=== PATIENT | female | born 1945 | race African-American/Black ===

== ENCOUNTER 2016-10-28 01:59 | Emergency (ER) | payer MEDICARE, MEDICAID ==
[~2016-10-28] VITALS: Ht 165.1 cm; Wt 106.6 kg
[~2016-10-28 01:59] MED LIST: ACE650RS PO; ALBU0.084 IN; ALBUAER3 IN; ALPR0.25 PO; ASPI-264 PO; BUDE160A3 INH; COLC1TAB3 PO; DONE5TAB28 PO; FUR40T PO; HYD25T PO; HYDR-1421 PO; POTA8TAB2 PO; ROPI1TAB2 PO; THEO400T PO; [UNRECOGNIZED DRUG - CODE] PO
[2016-10-28 02:09] VITALS: BP 165/89
== END 2016-10-28 05:00 | disposition home or self-care (01) ==
LOC: EDBD 01:59 → ER 02:09
DX: S13.9XXA Sprain of joints and ligaments of unspecified parts of neck, initial encounter (principal); R51 Headache; I50.9 Heart failure, unspecified; J44.9 Chronic obstructive pulmonary disease, unspecified; M10.9 Gout, unspecified; Z79.899 Other long term (current) drug therapy; Z79.82 Long term (current) use of aspirin; Z88.1 Allergy status to other antibiotic agents; Z88.0 Allergy status to penicillin; F17.210 Nicotine dependence, cigarettes, uncomplicated; X58.XXXA Exposure to other specified factors, initial encounter; Y99.8 Other external cause status; Y93.89 Activity, other specified; Y92.89 Other specified places as the place of occurrence of the external cause
CPT/HCPCS: 70450; 72125; 93005

== ENCOUNTER 2017-02-02 20:26 | Emergency (ER) | payer MEDICARE, MEDICAID ==
[~2017-02-02] VITALS: Ht 165.1 cm; Wt 102.5 kg
[~2017-02-02 20:26] MED LIST changes: +ALPR-140 PO; -ALPR0.25 PO; +DICL1GEL26 TOP; +GABA-497 PO; -HYDR-1421 PO; +HYDR-2652 PO; +HYDR-531 PO; +PRE1T PO; -THEO400T PO; +THEOPHYLLINE E400 MG PO
[2017-02-02 21:30] VITALS: BP 136/81
[2017-02-02 21:38] LABS: Albumin 3.5 g/dL (3.4-5.0); Alkaline Phosphatase 78 U/L (45-117); Anion Gap 7 (5-15); Aspartate Aminotransferase 26 U/L (15-37); BUN/Creatinine Ratio 15.4; Bilirubin, Total 0.3 mg/dL (0.2-1.0); Blood Urea Nitrogen 18 mg/dL (7-18); Carbon Dioxide 31 mmol/L (21-32); Chloride 101 mmol/L (98-107); GFR African American 58 mL/min; GFR Non-African American 48 mL/min; Glucose 137 mg/dL (74-106); Potassium 3.3 mmol/L (3.5-5.1); Sodium 139 mmol/L (136-145); Total Protein 7.5 g/dL (6.4-8.2)
[2017-02-02 21:55] LABS: Basophils # (auto) 0.1 uL; Basophils % (auto) 0.9 % (0.0-2.0); CONDITION Y; DEFINITIVE SEE PRINTOUT; Eosinophils # (auto) 0.2 uL; Eosinophils % (auto) 1.6 % (0.0-7.0); Hematocrit 42.8 % (36.0-46.0); Lymphocytes # (auto) 5.5 uL; Lymphocytes % (auto) 35.2 % (10.0-50.0); Mean Corpuscular Hemoglobin 26.7 pg (28.0-32.0); Mean Corpuscular Hgb Conc. 32.6 g/dL (32.0-36.0); Mean Platelet Volume 7.7 fL (7.4-10.4); Monocytes # (auto) 1.5 uL; Monocytes % (auto) 9.9 % (0.0-12.0); Neutrophils # (auto) 8.1 uL; Neutrophils % (auto) 52.4 % (37.0-80.0); Platelet Count (auto) 355 10^3/uL (140-450); White Blood Cell 15.5 10^3/uL (4.4-10.8)
[2017-02-02 21:58] LABS: Red Cell Distribution Width 20.7 % (11.6-16.0)
[2017-02-02 21:59] LABS: B-Type Natriuretic Peptide 41.59 pg/mL (0-100)
[2017-02-02 22:11] LABS: Anisocytosis Slight; Hypochromia Slight; Platelet Estimate Adequate
[2017-02-02 22:29] LABS: Temperature: 24.3 C (20.0-25.0)
== END 2017-02-03 00:34 | disposition home or self-care (01) ==
LOC: ER 20:27
DX: J44.1 Chronic obstructive pulmonary disease with (acute) exacerbation (principal); E87.6 Hypokalemia; I50.9 Heart failure, unspecified; M10.9 Gout, unspecified; I11.0 Hypertensive heart disease with heart failure; F17.210 Nicotine dependence, cigarettes, uncomplicated
CPT/HCPCS: 36415; 71010; 80053; 83880; 84484; 85025; 93005

== ENCOUNTER → 2020-03-29 | Emergency (ER) | payer MEDICARE, MEDICAID ==
[~2020-03-29] VITALS: Ht 152.4 cm; Wt 113.4 kg
[~2020-03-29] MED LIST changes: -ALPR-140 PO; +ALPR0.5T8 PO; +CALCIUM CHLOR(10%) 100MG/ML 10ML SYRINGE IV ONE; +DEXTROSE (50%) 50ML SYRG IV ONE; -DONE5TAB28 PO; +DONE5TAB31 PO; +EPINEPHrine HCL 1 MG/10 ML SYRG IV ONE; -GABA-497 PO; +GABA300C10 PO; -HYDR-2652 PO; +HYDR50TA15 PO; +SODIUM BICARBONATE 8.4% INJ 50ML SYRINGE IV ONE; +THEO400T PO; -THEOPHYLLINE E400 MG PO
[2020-03-29 11:31] VITALS: BP 0/0
== END | disposition home or self-care (01) ==
LOC: EDUNIT# 11:19 → EDBD 11:27 → ER 11:27
DX: I46.9 Cardiac arrest, cause unspecified (principal); J96.90 Respiratory failure, unspecified, unspecified whether with hypoxia or hypercapnia
CPT/HCPCS: 31500; 92950; 99285; J0171; J7042